=== PATIENT | female | born 1990 | race African-American/Black ===

== ENCOUNTER 2017-02-18 11:09 | Outpatient (CLI) | payer OTHER ==
[~2017-02-18 11:09] MED LIST: AMOXICILLIN875 MG PO; BACTRIM,SEPT1 TABLET PO; IBUPROFEN800 MG PO; KEFLEX500 MG PO; NAPROSYN500 MG PO; PERCOCET 5/31 TABLET PO; PRENATABS FA T1 EACH PO; ULTRAM50 MG PO
[2017-02-18 12:08] VITALS: BP 135/76
[2017-02-18 13:07] VITALS: BP 122/83
[2017-02-18 18:57] LABS: CANDIDA DNA PROBE NEGATIVE; GARDNERELLA DNA PROBE NEGATIVE; INTERNAL CONTROL VALID? YES
== END 2017-02-18 14:00 | disposition home or self-care (01) ==
LOC: LDRP-OP → 2WEST 11:10 → LDRP-OP 03-21 08:49
PROVIDERS: Advanced Practice Midwife
DX: O26.899 Other specified pregnancy related conditions, unspecified trimester (principal); Z3A.00 Weeks of gestation of pregnancy not specified
CPT/HCPCS: 59025; 87480; 87510; 87660; G0378

== ENCOUNTER 2017-02-18 22:38 | Inpatient (IN) | payer OTHER ==
[~2017-02-18] VITALS: Ht 177.8 cm; Wt 84.1 kg
[2017-02-18 23:24] LABS: EOSINOPHIL (%) 0.4 % (0-5); HEMATOCRIT 31.9 % (36.0-46.0); IMMATURE GRANULOCYTE (%) 0.5 % (0.0-0.7); IMMATURE GRANULOCYTE COUNT 0.1 K/uL; LYMPHOCYTE COUNT 2.1 K/uL (1.0-2.8); MCH 27.9 PG (29.0-34.0); MCHC 33.2 G/DL (30.0-36.0); MCV 83.9 FL (83-99); MEAN PLAT.VOLUME 12.2 uM^3 (9.5-12.4); MONOCYTE (%) 11.5 % (3-12); MONOCYTE COUNT 1.1 K/uL (0-0.8); NEUTROPHIL (%) 64.4 % (45-76); PLATELET COUNT 152 K/uL (156-360); RBC DIS.WIDTH-CV 14.7 % (11.8-14.6); RBC DIS.WIDTH-SD 44.5 % (39-53); WHITE BLOOD COUNT 9.3 K/uL (4.1-10.2)
[2017-02-18 23:39] VITALS: BP 141/83
[2017-02-19] VITALS (15 sets, daily range): BP systolic 118–146; BP diastolic 57–96
[2017-02-20 06:31] LABS: BASOPHIL COUNT 0.1 K/uL (0-0.1); EOSINOPHIL COUNT 0.1 K/uL (0-0.3); HEMATOCRIT 30.1 % (36.0-46.0); IMMATURE GRANULOCYTE (%) 0.7 % (0.0-0.7); IMMATURE GRANULOCYTE COUNT 0.1 K/uL; INSTRUMENT ABS NEUTROPHIL CT 8.8 K/uL; LYMPHOCYTE COUNT 3.2 K/uL (1.0-2.8); MCH 26.9 PG (29.0-34.0); MCHC 31.2 G/DL (30.0-36.0); MCV 86.2 FL (83-99); MEAN PLAT.VOLUME 11.9 uM^3 (9.5-12.4); MONOCYTE (%) 9.5 % (3-12); MONOCYTE COUNT 1.3 K/uL (0-0.8); NEUTROPHIL (%) 64.8 % (45-76); NEUTROPHIL COUNT 8.8 K/uL (1.8-6.4); PLATELET COUNT 144 K/uL (156-360); RBC DIS.WIDTH-CV 14.7 % (11.8-14.6); RBC DIS.WIDTH-SD 46.2 % (39-53); RED BLOOD COUNT 3.49 M/uL (3.80-5.20); WHITE BLOOD COUNT 13.5 K/uL (4.1-10.2)
[2017-02-20 07:00] VITALS: BP 137/83
[2017-02-20 23:00] VITALS: BP 120/60
[2017-02-21 07:52] VITALS: BP 139/91
[2017-02-21] MEDS ORDERED: IBUPROFEN800 MG PO (08:45)
== END 2017-02-21 15:53 | disposition home or self-care (01) | DRG 775 ==
LOC: LDRP-OP 22:38 → 2WEST 22:39 → LDRP-OP 03-21 15:33
PROVIDERS: Advanced Practice Midwife
PROC: 00HU33Z Insertion of Infusion Device into Spinal Canal, Percutaneous Approach (ICD-10-PCS; principal; 2017-02-19)
PROC: 10E0XZZ Delivery of Products of Conception, External Approach (ICD-10-PCS; principal; 2017-02-19)
PROC: 3E0R3BZ Introduction of Anesthetic Agent into Spinal Canal, Percutaneous Approach (ICD-10-PCS; principal; 2017-02-19)
DX: O99.214 Obesity complicating childbirth (principal); Z3A.40 40 weeks gestation of pregnancy; Z37.0 Single live birth; Z82.49 Family history of ischemic heart disease and other diseases of the circulatory system
CPT/HCPCS: 59025; 85025; 87480; 87510; 87660; C1755; G0378; J3010; J7120